=== PATIENT | male | born 1960 | race Caucasian/White ===

== ENCOUNTER 2018-02-10 05:21 | Day surgery (SDC) | payer OTHER ==
[2018-02-06 11:27] LABS: HEMATOCRIT 48.7 % (37.9-51.0); HEMOGLOBIN 16.3 g/dL (13.5-17.0); MEAN CORPUSCULAR HEMOGLOBIN 28.8 pg (27.0-33.4); MEAN CORPUSCULAR HGB CONC 33.4 g/dL (32.0-36.0); MEAN CORPUSCULAR VOLUME 86 fl (80-97); PLATELET COUNT 231 10^3/uL (150-450); RED BLOOD COUNT 5.66 10^6/uL (4.35-5.55); RED CELL DISTRIBUTION WIDTH 14.1 % (11.5-14.0); WHITE BLOOD COUNT 5.7 10^3/uL (4.0-10.5)
[2018-02-06 11:50] LABS: ANION GAP 13 (5-19); BLOOD UREA NITROGEN 13 mg/dL (7-20); CALCIUM 9.7 mg/dL (8.4-10.2); CARBON DIOXIDE 28 mmol/L (22-30); CHLORIDE 98 mmol/L (98-107); GLUCOSE 97 mg/dL (75-110); POTASSIUM 4.9 mmol/L (3.6-5.0); SODIUM 138.7 mmol/L (137-145)
--- NOTE | 2018-02-06 21:06 | EKG REPORT ---
SEVERITY:- NORMAL ECG - SINUS RHYTHM : Confirmed by: Brynn Kiran 06-Feb-2018 21:05:57
[~2018-02-10 05:21] MED LIST: CEFAZOLIN 1 GM/D5W RTU 1 GM/50 ML RTUPB IV PRN; LACTATED RINGERS 1000 ML IV PRN; LIDOCAINE 0.5% INJ-PF (5 MG/ML) 50 ML SDV SUBCUT PRN
[2018-02-10] MEDS ORDERED: BACITRACIN INJ 50,000 UNIT VIAL ONE (05:24)
[2018-02-10] MEDS ORDERED: BUPIVACAINE HCL 0.25 % INJ/PF (2.5 MG/1 ML) 30 ML VIAL ONE (05:24)
[2018-02-10] MEDS ORDERED: LIDOCAINE 0.5% INJ-PF (5 MG/ML) 50 ML SDV ONE (05:24)
[2018-02-10] MEDS ORDERED: FENTANYL CITRATE INJ/PF 250 MCG/5 ML AMPULE ONE (07:12)
[2018-02-10] MEDS ORDERED: EPHEDRINE SULFATE INJ 50 MG/1 ML AMPULE ONE (07:12)
[2018-02-10] MEDS ORDERED: MIDAZOLAM 2 MG/2 ML INJ ONE (07:12)
[2018-02-10] MEDS ORDERED: PROPOFOL INJ 200 MG/20 ML VIAL IV ONE (07:12)
[2018-02-10] MEDS ORDERED: ACETAMINOPHEN 100 ML IV ONE (07:12)
[2018-02-10] MEDS ORDERED: HYDROMORPHONE HCL INJ/PF 2 MG/ML AMPULE ONE (07:13)
[2018-02-10] MEDS ORDERED: OXYCODONE-ACETAMINOPHEN 5-325 MG TABLET PO PRN ×2 (08:21)
[2018-02-10] MEDS ORDERED: PROMETHAZINE HCL INJ 25 MG/1 ML VIAL IV PRN ×2 (08:21)
[2018-02-10] MEDS ORDERED: FENTANYL CITRATE INJ/PF 100 MCG/2 ML AMPUL IV PRN ×3 (08:21)
[2018-02-10] MEDS ORDERED: DIPHENHYDRAMINE HCL 50 MG/ML VIAL IV PRN (08:21)
[2018-02-10] MEDS ORDERED: MEPERIDINE HCL/PF INJ 25 MG/1 ML DISP.SYRIN IV PRN (08:21)
--- NOTE | 2018-02-10 10:03 | Discharge Summary ---
Discharge Summary (SDC) - Discharge Final Diagnosis: Right possible bilateral inguinal hernia. Right sided lipoma and lipoma of the cord. Date of Surgery: 02/10/18 Discharge Date: 02/10/18 Condition: Good Treatment or Instructions: Discharge home [after recovery per ASU criteria]. Diet , as tolerated, when fully awake advance as tolerated. Important to maintain maintain hydration with water especially. Activities within moderation encouraged. Activity up to the level of walking is encouraged. Continued use of ELPIDIO hose at home is encouraged for at least a week. Meds per med rec. Percocet. Follow up in my office by appointment in about [1 week]. Call for appointment. Leave wounds [covered], [keep clean and dry, until office visit in 1 week]. Hold of on school/work [until evaluation in office]. May shower [in 48 hrs], [try to keep operated area as dry as possible]. Prescriptions: Oxycodone HCl/Acetaminophen [Percocet 5-325 mg Tablet] 1 tab PO ASDIR PRN #15 tab PRN Reason: Referrals: YESICA RUBIO DO [Primary Care Provider] - Discharge Diet: As Tolerated, Other (Comments) - Maintain hydration especially with water. Respiratory Treatments at Home: Deep Breathing/Coughing Discharge Activity: Walk Frequently Report the Following to Your Physician Immediately: Shortness of Breath, Unusual Bleeding
[2018-02-10] MEDS ORDERED: ALBUTEROL SULFATE 0.083% NEB 2.5 MG/3 ML AMPUL NEB ONE (10:17)
--- NOTE | 2018-02-10 10:22 | Operative Report ---
Operative Report DATE OF SURGERY: 02/10/18 PREOPERATIVE DIAGNOSIS: Right possible bilateral inguinal hernia POSTOPERATIVE DIAGNOSIS: Right sided lipoma of cord, subcutaneous lipoma. OPERATION: Expiration of right inguinal area, excision of lipoma of cord, repair of inguinal defect with mesh. Excision of subcutaneous lipoma. TISSUE REMOVED OR ALTERED: 1. Lipoma of cord. 2. Subcutaneous lipoma. COMPLICATIONS: None. ESTIMATED BLOOD LOSS: 10 mL. INTRAOPERATIVE FINDINGS: Of bilateral, most prominent on the right bulges actually well below the inguinal area. On the right side about 3 cm across. These have the appearance of hernia with no cough impulse. Increased body mass index as well. Exploration of the right inguinal canal revealed 2 lipoma of the cord which were excised. No direct or indirect hernia, only weakness at the internal ring. The weakness of the internal ring was repaired with a Prolene hernia system mesh. Since the patient's presentation was of these lumps in the lower groin area excision of the subcutaneous lipoma the right groin was done. This was sent for pathology. The cosmetic outcome is is better but the bulges remain. Based on expiration of the right groin and repair of the defect was thought prudent not to explore the left side. Should there be left-sided symptoms at least on ultrasound of the inguinal area might be indicated if not a CT scan. PROCEDURE: After obtaining informed consent and going over the procedure with with the patient and his family. He was taken to the operating room, he was anesthetized and intubated. The abdomen was prepped and draped in the usual sterile fashion. After the universal timeout, in which it was verified that the patient received IV antibiotic, the procedure commenced. A transverse incision was made in the right lower abdomen abdominal, groin area , just above the pubic tubercle. 6 cm in length.Local, regional anesthesia was infiltrated, just before incision.. Incision was made with a [15 blade scalpel] . Dissection now proceeded through the subcutaneous tissue down to the external oblique aponeurosis. The external ring was identified and the external oblique opened in the line of its fibers. The inguinal canal was thus displayed. Dissection was facilitated by the use a headlight and using loupe magnification. The spermatic cord was dissected off the pubic tubercle and surrounded with a moist Karlo drain, the cremasteric fascia was now incised longitudinally revealing the contents of the spermatic cord. The sac was readily evident and this was grasped with a hemostat. It was now dissected in a retrograde fashion into the retroperitoneal space. It was now reduced within the the preperitoneal space. The preperitoneal space was now developed circumferentially. It easily accommodated a sponge which was removed. Hemostasis was checked for and ensured there in. The space between the external and internal oblique aponeuroses was now developed to accommodate the external portion of the mesh. Having done so a Prolene hernia system mesh was now folded, in the cloth bale header's approved fashion and inserted into the preperitoneal space. The internal portion was deployed flat in the preperitoneal space the external portion was unfolded and tucked beneath the external oblique. Secured with a 0 PDS suture to the internal oblique superiorly, the fascia adjacent to the pubic tubercle medially, inferiorly it was split up to the connector, the the split mesh was now used to surround the spermatic cord. It was reapproximated with a suture of 0 PDS. 0 PDS was now used to approximate the inferior border of the mesh to the shelving edge of Poupart's ligament with a single suture. Laterally the mesh was tucked beneath the external oblique. Since there was no actual hernia sac either direct or indirect and the bulge in the lower right groin was still clearly appreciable this was evaluated and found to be due to a lipoma. This was therefore excised dissecting with cautery circumferentially. This was submitted for pathology. The remaining skin still having quite a bit of subcutaneous tissue was not approximated to the underlying tissues reduce the cosmetic impact. The external oblique was now reconstituted using a continuous suture of 3-0 PDS. 3-0 PDS interrupted sutures were used to approximate the subcutaneous tissues after removing the Karlo drain. The skin was closed using a continuous subcuticular suture of 4-0 Monocryl reinforced with Steri-Strips over benzoin. Copies dictated operative report to Dr. Domenico Riggs MD.
[2018-02-10] MEDS: NALOXONE HCL INJ/PF 0.4 MG/1 ML SDV ONE ×3 (10:33→10:43)
[2018-02-10] MEDS ORDERED: HYDROMORPHONE HCL INJ/PF 2 MG/ML AMPULE INJ PRN (11:05)
[2018-02-10] MEDS ORDERED: DEXTROSE 5%-1/2 NORMAL SALINE 1,000 ML IV PRN (11:10)
--- NOTE | 2018-02-10 11:20 | RADIOLOGY REPORT (SQ) ---
EXAM DESCRIPTION: CHEST SINGLE VIEW COMPLETED DATE/TIME: 02/10/2018 10:49 am REASON FOR STUDY: sob COMPARISON: None. EXAM PARAMETERS: NUMBER OF VIEWS: One view. TECHNIQUE: Single frontal radiographic view of the chest acquired. RADIATION DOSE: NA LIMITATIONS: None. FINDINGS: LUNGS AND PLEURA: Faint streaky opacities in the right and left upper lobe. No large pleu ral effusions. No pneumothorax. MEDIASTINUM AND HILAR STRUCTURES: No masses. Contour normal. HEART AND VASCULAR STRUCTURES: Heart normal in size. Normal vasculature. BONES: No acute findings. HARDWARE: None in the chest. OTHER: No other significant finding. IMPRESSION: FAINT OPACITIES IN THE UPPER LOBES, CONCERNING FOR EARLY DEVELOPING INFILTRATE SECONDARY TO PNEUMONIA. ANOTHER POSSIBILITY WOULD BE MILD ASYMMETRIC PULMONARY EDEMA. TECHNICAL DOCUMENTATION: JOB ID: [id number] [employer]- All Rights Reserved Reading location - IP/workstation name: [email or web address]
[2018-02-10] MEDS ORDERED: METHYLPREDNISOLONE INJ 125 MG/2 ML SDV ONE (11:31)
--- NOTE | 2018-02-10 12:32 | EKG REPORT ---
SEVERITY:- OTHERWISE NORMAL ECG - SINUS RHYTHM LOW VOLTAGE IN FRONTAL LEADS : Confirmed by: Shlomo López MD 10-Feb-2018 12:32:25
[2018-02-10] MEDS ORDERED: METHYLPREDNISOLONE INJ 125 MG/2 ML SDV IV ONE (13:00)
[2018-02-10] MEDS: ALBUTEROL SULFATE 0.083% NEB 2.5 MG/3 ML AMPUL NEB SCH ×2 (13:23→20:30)
[2018-02-10] MEDS ORDERED: DEXAMETHASONE SOD PHOSPHATE INJ 4 MG/1 ML VIAL ONE (13:45)
[2018-02-10] MEDS ORDERED: SUCCINYLCHOLINE CHLORIDE INJ 200 MG/10 ML VIAL ONE (13:45)
[2018-02-10] MEDS: OXYCODONE-ACETAMINOPHEN 5-325 MG TABLET PO PRN (22:02)
[2018-02-11] MEDS: ALBUTEROL SULFATE 0.083% NEB 2.5 MG/3 ML AMPUL NEB SCH ×2 (01:58→08:01)
[2018-02-11] MEDS: OXYCODONE-ACETAMINOPHEN 5-325 MG TABLET PO PRN (02:16)
[2018-02-11] MEDS ORDERED: TRAZODONE HCL 50 MG TABLET PO PRN (07:14)
[2018-02-11] MEDS ORDERED: FUROSEMIDE 20 MG TABLET PO ONE (09:00)
[2018-02-11] MEDS ORDERED: (PENDING PHARMACY ID) (Lamotrigine [Lamictal] 200 MG) PO SCH (10:00)
[2018-02-11] MEDS ORDERED: LORATADINE 10 MG TABLET PO SCH (10:00)
[2018-02-11] MEDS ORDERED: LAMOTRIGINE 100 MG TABLET PO SCH (10:00)
[2018-02-11] MEDS ORDERED: BUPROPION HCL 75 MG TABLET PO SCH (10:00)
[2018-02-11] MEDS ORDERED: ESCITALOPRAM OXALATE 10 MG TABLET PO SCH (10:00)
[2018-02-11] MEDS ORDERED: LISINOPRIL 10 MG TABLET PO SCH (10:00)
[2018-02-11] MEDS ORDERED: (PENDING PHARMACY ID) (Lisinopril [Prinivil] 20 MG) PO SCH (10:00)
[2018-02-11 10:17] VITALS: BP 137/86
[2018-02-11] MEDS ORDERED: (PENDING PHARMACY ID) (Buspirone Hcl [Buspar 15 Mg Tablet] 1 TAB) PO SCH (14:00)
[2018-02-11] MEDS ORDERED: BUSPIRONE HCL 10 MG TABLET PO SCH (14:00)
[2018-02-11] MEDS ORDERED: ATORVASTATIN CALCIUM 10 MG TABLET PO SCH (22:00)
[2018-02-11] MEDS ORDERED: (PENDING PHARMACY ID) (Prazosin Hcl [Minipress] 2 MG) PO SCH (22:00)
[2018-02-11] MEDS ORDERED: (PENDING PHARMACY ID) (Prazosin Hcl [Minipress] 5 MG) PO SCH (22:00)
[2018-02-11] MEDS ORDERED: HYDROXYZINE PAMOATE 50 MG CAPSULE PO SCH (22:00)
[2018-02-11] MEDS ORDERED: HYDROXYZINE PAMOATE 100 MG PO SCH (22:00)
[2018-02-12] MEDS ORDERED: LANSOPRAZOLE 30 MG TAB.RAP.DR PO SCH (06:00)
[2018-02-12] MEDS ORDERED: FUROSEMIDE 20 MG TABLET PO SCH (08:00)
== END 2018-02-11 10:40 | disposition home or self-care (01) ==
LOC: OROUT 05:21 → 5 12:38 → OROUT 02-11 10:40
PROVIDERS: ATTEND Surgery
PROC: 0YU50JZ Supplement Right Inguinal Region with Synthetic Substitute, Open Approach (ICD-10-PCS; principal; 2018-02-10 07:30)
DX: K40.20 Bilateral inguinal hernia, without obstruction or gangrene, not specified as recurrent (principal); D17.6 Benign lipomatous neoplasm of spermatic cord; D17.1 Benign lipomatous neoplasm of skin and subcutaneous tissue of trunk; I10 Essential (primary) hypertension; E66.9 Obesity, unspecified; Z79.899 Other long term (current) drug therapy
CPT/HCPCS: 93005 ×2; 36415 ×2; 82962; 84132; 85027; 80048; 88304 ×2; 71045; 93010 ×2; 94762 ×2; 94640 ×2; 49505; C1781; J2250; J3490 ×3; J0690; J1100; J3010; J2930; J2310; J1170; J0330; J2704; J0131; 830